=== PATIENT | male | born 1990 | race African-American/Black ===

== ENCOUNTER 2017-10-09 01:41 | Emergency (ER) | payer MEDICAID ==
[~2017-10-09] VITALS: Ht 180.3 cm; Wt 98.1 kg
[2017-10-09 01:45] VITALS: Ht 180.3 cm; Wt 98.1 kg
[2017-10-09 04:50] VITALS: BP 130/60
== END 2017-10-09 04:50 | disposition home or self-care (01) ==
LOC: ED 01:41
DX: S09.90XA Unspecified injury of head, initial encounter (principal); R07.89 Other chest pain; V43.92XA Unspecified car occupant injured in collision with other type car in traffic accident, initial encounter; Y93.I9 Activity, other involving external motion; Y92.488 Other paved roadways as the place of occurrence of the external cause; Y99.8 Other external cause status
CPT/HCPCS: J1885